=== PATIENT | male | born 1940 | race Caucasian/White ===

== ENCOUNTER 2021-01-02 13:19 | Emergency (ER) | payer OTHER ==
--- NOTE | 2021-01-02 14:14 | EDM.PDOC ---
ED HPI GENERAL MEDICAL PROBLEM - General Chief Complaint: Cardiovascular Problem Stated Complaint: FROM CARDIAC REHAB HEART RATE FAST Time Seen by Provider: 01/02/21 14:09 Source of Information: Reports: Patient, Provider, RN Notes Reviewed History Limitations: Reports: No Limitations - History of Present Illness INITIAL COMMENTS - FREE TEXT/NARRATIVE: 80-year-old gentleman presents emergency department sent up for cardiac rehab he completed cardiac rehab vital signs at that time demonstrated heart rate around 120 was sent to the emergency department for further evaluation by the time he arrives his heart rate is now around 110 he has no complaints no palpitation no chest pain no shortness of breath he is status post CABG approximately 3 months prior - Related Data Allergies Allergy/AdvReac Type Severity Reaction Status Date / Time oxycodone [From Percocet] Allergy Itching Verified 10/01/20 13:45 Home Meds: Home Meds Albuterol Sulfate [Albuterol Sulfate Hfa] 2 puff INH ASDIRECTED PRN 10/15/20 [History] Apixaban [Eliquis] 5 mg PO BID 10/15/20 [History] Aspirin [Ecotrin EC] 81 mg PO DAILY 10/15/20 [History] Colchicine 0.6 mg PO ASDIRECTED PRN 10/15/20 [History] Dextran 70/Hypromellose [Artificial Tears] 1 drop EYEBOTH ASDIRECTED PRN 10/15/20 [History] Docusate Sodium [Stool Softener] 100 mg PO DAILY 10/15/20 [History] Furosemide [Lasix] 20 mg PO DAILY 10/15/20 [History] Glucosamine [Glucosamine Sulfate] 500 mg PO DAILY 10/15/20 [History] Hydrocortisone [Hydrocortisone 2.5% Crm] 1 applic TOP ASDIRECTED PRN 10/15/20 [History] Krill/Om-3/DHA/EPA/Phospho/Ast [Krill Oil 1,000 mg Softgel] 1,250 mg PO DAILY 10/15/20 [History] Lidocaine 5% [Lidoderm 5%] 1 patch TOP ASDIRECTED PRN 10/15/20 [History] Losartan [Cozaar] 25 mg PO DAILY 10/15/20 [History] Melatonin 3 mg PO BEDTIME 10/15/20 [History] Metoprolol Succinate 25 mg PO BID 10/15/20 [History] Miconazole Nitrate 1 applic TOP ASDIRECTED PRN 10/15/20 [History] Multivit with Min #53/FA/K/Q10 [Dekas Plus Softgel] 1 tab PO DAILY 10/15/20 [History] Olodaterol HCl [Striverdi Respimat] 2.5 mcg INH DAILY 10/15/20 [History] PARoxetine [Paxil] 40 mg PO BEDTIME 10/15/20 [History] Pantoprazole Sodium [Protonix] 40 mg PO DAILY 10/15/20 [History] Propylene Glycol/PEG 400/Pf [Systane 0.3-0.4% Eye Drop] 1 drop EYEBOTH BEDTIME 10/15/20 [History] Ranitidine HCl [Acid Service Observer Chief] 150 mg PO ASDIRECTED PRN 10/15/20 [History] Rosuvastatin Calcium 40 mg PO BEDTIME 10/15/20 [History] allopurinoL [Zyloprim] 300 mg PO DAILY 10/15/20 [History] busPIRone [Buspar] 10 mg PO BID 10/15/20 [History] metFORMIN HCl [Metformin HCl ER] 500 mg PO BID 10/15/20 [History] predniSONE [Prednisone] 20 mg PO ASDIRECTED PRN 10/15/20 [History] rOPINIRole [Requip] 1 mg PO ASDIRECTED PRN 10/15/20 [History] Past Medical History Cardiovascular History: Reports: Afib, CAD, High Cholesterol, Hypertension Respiratory History: Reports: COPD Gastrointestinal History: Reports: GERD Genitourinary History: Reports: Prostate Disorder Oncologic (Cancer) History: Reports: Prostate - Infectious Disease History Infectious Disease History: Reports: Chicken Pox - Past Surgical History Cardiovascular Surgical History: Reports: AAA Repair, Valve Replacement Male Surgical History: Reports: Prostatectomy, Other (See Below) Other Male Surgeries/Procedures: 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 Musculoskeletal Surgical History: Reports: Other (See Below) Other Musculoskeletal Surgeries/Procedures:: back surgery Social & Family History - Tobacco Use Tobacco Use Status *Q: Former Tobacco User Used Tobacco, but Quit: Yes Month/Year Tobacco Last Used: 1988 - Caffeine Use Caffeine Use: Reports: Coffee - Recreational Drug Use Recreational Drug Use: No ED ROS GENERAL - Review of Systems Review Of Systems: See Below Constitutional: Reports: No Symptoms HEENT: Reports: No Symptoms Respiratory: Reports: No Symptoms Cardiovascular: Reports: No Symptoms GI/Abdominal: Reports: No Symptoms Neurological: Reports: No Symptoms ED EXAM, GENERAL - Physical Exam Exam: See Below Exam Limited By: No Limitations General Appearance: Alert, WD/WN, No Apparent Distress Respiratory/Chest: No Respiratory Distress, Lungs Clear, Normal Breath Sounds, No Accessory Muscle Use, Chest Non-Tender Cardiovascular: Regular Rate, Rhythm, No Murmur GI/Abdominal: Soft, Non-Tender #1 Interpretation EKG Date: 01/02/21 Time: 15:05 Rhythm: NSR [place]: Normal P-Wave: Present QRS: Normal ST-T: Normal QT: Normal Comparison: NA - No Prior EKG Course - Vital Signs Last Recorded V/S: Last Vital Signs Temp 97.5 F 01/02/21 13:42 Pulse 114 H 01/02/21 13:42 Resp 20 01/02/21 13:42 BP 139/84 01/02/21 13:42 Pulse Ox 93 L 01/02/21 13:42 - Orders/Labs/Meds Labs: Laboratory Tests 01/02/21 01/02/21 Range/Units 14:22 14:22 WBC 5.1 (4.5-11.0) K/uL RBC 3.36 L (4.30-5.90) M/uL Hgb 10.5 L (12.0-15.0) g/dL Hct 32.4 L (40.0-54.0) % MCV 96 (80-98) fL MCH 31 (27-31) pg MCHC 32 (32-36) % Plt Count 189 (150-400) K/uL Neut % (Auto) 71.5 H (36-66) % Lymph % (Auto) 14.1 L (24-44) % [place] % (Auto) 10.9 H (2-6) % Eos % (Auto) 3.3 (2-4) % Baso % (Auto) 0.2 (0-1) % Sodium 140 (140-148) mmol/L Potassium 4.3 (3.6-5.2) mmol/L Chloride 105 (100-108) mmol/L Carbon Dioxide 26 (21-32) mmol/L Anion Gap 8.8 (5.0-14.0) mmol/L BUN 16 (7-18) mg/dL Creatinine 1.3 (0.8-1.3) mg/dL Est Cr Clr Drug Dosing 48.35 mL/min Estimated GFR (MDRD) 53 L (>60) Glucose 113 H (74-106) mg/dL Calcium 8.7 (8.5-10.1) mg/dL Total Bilirubin 0.2 (0.2-1.0) mg/dL AST 24 (15-37) U/L ALT 29 (12-78) U/L Alkaline Phosphatase 66 (46-116) U/L Troponin I < 0.017 (0.000-0.056) ng/mL Total Protein 6.0 L (6.4-8.2) g/dL Albumin 3.0 L (3.4-5.0) g/dL Globulin 3.0 (2.3-3.5) g/dL Albumin/Globulin Ratio 1.0 L (1.2-2.2) Departure - Departure Time of Disposition: 15:05 Disposition: Home, Self-Care 01 Condition: Fair Clinical Impression: Tachycardia Instructions: Sinus Tachycardia Referrals: Alex Dunn MD [Primary Care Provider] - Forms: ED Department Discharge Additional Instructions: Continue with current medications, please followup with your primary care provider in 3-5 days if not better, please call return to the emergency department with worsening of symptoms. Sepsis Event Note (ED) - Evaluation Sepsis Screening Result: No Definite Risk - Focused Exam Vital Signs: Vital Signs Temp Pulse Resp BP Pulse Ox 01/02/21 13:42 97.5 F 114 H 20 139/84 93 L 01/02/21 13:39 97.5 F 114 H 20 139/84 93 L - Assessment/Plan Plan: Assessment Acuity = acute Site and laterality = tachycardia Etiology = unknown Manifestations = none Location of injury = Home Lab values = CBC, CMP, troponin within normal limits EKG demonstrates sinus tachycardia no ST elevations or depressions Plan I did review lab work with him he remains asymptomatic will return to the emergency department with worsening of symptoms otherwise follow-up primary care This note was dictated using [employer] voice recognition software please call with any questions on syntax or grammar.
== END 2021-01-02 15:33 | disposition home or self-care (01) ==
LOC: JP.ED 13:19
DX: R00.0 Tachycardia, unspecified (principal); J44.9 Chronic obstructive pulmonary disease, unspecified; E78.00 Pure hypercholesterolemia, unspecified; I10 Essential (primary) hypertension; I48.91 Unspecified atrial fibrillation; Z87.891 Personal history of nicotine dependence; Z79.82 Long term (current) use of aspirin; Z79.84 Long term (current) use of oral hypoglycemic drugs; Z79.01 Long term (current) use of anticoagulants; Z95.1 Presence of aortocoronary bypass graft; Z79.899 Other long term (current) drug therapy
CPT/HCPCS: 36415; 80053; 84484; 85025; 99285-25